=== PATIENT | female | born 1975 | race Caucasian/White ===

== ENCOUNTER 2016-06-14 09:55 | Emergency (ER) | payer MEDICAID, OTHER ==
[~2016-06-14] VITALS: Ht 157.5 cm; Wt 61.2 kg
[2016-06-14 10:11] VITALS: BP 92/61
--- NOTE | 2016-06-14 10:28 | NUR ---
PATIENT PRESENTS TO ED WITH RIGHT FLANK PAIN RADIATING TO LOWER ABD . DENIES N/V/D; SKIN IS PINK/WARM/DRY; AAOX4 WITH EVEN AND STEADY GAIT; PT DENIES ANY FEVER, CP, SOB, OR COUGH AT THIS TIME; PATIENT STATES PAIN OF 8/10 AT THIS TIME; VSS; PATIENT POSITIONED FOR COMFORT; HOB ELEVATED; BEDRAILS UP X2; BED DOWN. ER MD MADE AWARE OF PT STATUS.
--- NOTE | 2016-06-14 10:31 | NUR ---
DR. DILLON AT BEDSIDE
[2016-06-14] MEDS ORDERED: KETOROLAC 60 MG/2 ML VIAL IM ONE (10:35)
[2016-06-14] MEDS ORDERED: MORPHINE SULFATE 4 MG/ML SYR IVP ONE (11:10)
--- NOTE | 2016-06-14 11:28 | NUR ---
PATIENT TRANSPORTED TO CT SCAN VIA [facility]
--- NOTE | 2016-06-14 13:04 | NUR ---
Patient discharged with v/s stable. Written and verbal after care instructions given and explained. FAMILY AT BEDSIDE WILL DRIVE THE PATIENT HOME Patient alert, oriented and verbalized understanding of instructions. Ambulatory with steady gait. All questions addressed prior to discharge. ID band removed. Patient advised to follow up with PMD. Rx of MOTRIN, NORCO, CIPRO given. Patient educated on indication of medication including possible reaction and side effects. Opportunity to ask questions provided and answered.
[2016-06-14 13:07] VITALS: BP 97/59
== END 2016-06-14 13:04 | disposition home or self-care (01) ==
LOC: MED 10:07
DX: N12 Tubulo-interstitial nephritis, not specified as acute or chronic (principal); Z88.0 Allergy status to penicillin; Z88.5 Allergy status to narcotic agent
CPT/HCPCS: 36415; 74176; 80053; 81001; 81025; 83690; 85025; 96372; 96374; 99285; J1885; J2270